=== PATIENT | female | born 1970 | race Caucasian/White ===

== ENCOUNTER 2018-03-16 17:06 | Emergency (ER) | payer BC ==
--- NOTE | 2018-03-16 17:31 | ERPHSYRPT ---
- History of Present Illness Patient Subjective Stated Complaint: Pt states "I have been fighting this for awhile now, my stomach will have periods of cramping and then it will ease up. I went to [facility] last week and they took an x ray and said they thought they saw something and I have an appointment with Dr. Grissom tomorrow so I thought I could make it. The cramping is just horrible. I usually have a bowel movement every time I go to the bathroom but I have not went in 24 hours. I took mirilax and it is still not helping." Triage Nursing Assessment: Pt alert and oriented X 3, skin pwd. Pt ambulates with an upright steady gait, able to speak in clear full sentences. Pt is obese with soft non tender abdomen, no apparent respiratory distress. Hx Tetanus, Diphtheria Vaccination/Date Given: Yes Hx Influenza Vaccination/Date Given: No Hx Pneumococcal Vaccination/Date Given: No Immunizations Up to Date: Yes <RILEY JEAN - Last Filed: 03/16/18 18:46> <TANESHA MEDELLIN - Last Filed: 03/16/18 20:21> - History of Present Illness Time Seen by Provider: 03/16/18 17:28 Physician History: mild to mod off and on diffuse abdominal cramps for one week, +feverish, +NV, no injury, no hx menstrual periods due to no ovaries (RILEY JEAN) Allergies/Adverse Reactions: No Known Drug Allergies Allergy (Unverified 03/16/18 17:22) - Review of Systems Constitutional: Fever Eyes: No Eye Redness Ears, Nose, & Throat: No Mouth Pain Respiratory: No Dyspnea Cardiac: No Chest Pain Abdominal/Gastrointestinal: Abdominal Pain, Nausea, Vomiting Genitourinary Symptoms: No Dysuria Musculoskeletal: No Back Pain Skin: No Rash Neurological: No Dizziness <RILEY JEAN - Last Filed: 03/16/18 18:46> - Past Medical History Pertinent Past Medical History: Yes Neurological History: No Pertinent History ENT History: No Pertinent History Cardiac History: No Pertinent History Respiratory History: No Pertinent History Endocrine Medical History: No Pertinent History Musculoskeletal History: No Pertinent History GI Medical History: No Pertinent History History: No Pertinent History Psycho-Social History: No Pertinent History Female Reproductive Disorders: Other Other Medical History: no ovaries - Past Surgical History Past Surgical History: Yes Other Surgical History: colton. left shoulder. left wrist - Social History Smoking Status: Never smoker Exposure to second hand smoke: No Drug Use: none Patient Lives Alone: Yes - Female History Hx Last Menstrual Period: no ovaries Hx Now: No <RILEY JEAN - Last Filed: 03/16/18 18:46> - Physical Exam General Appearance: no apparent distress Eye Exam: eyes nml inspection Ears, Nose, Throat Exam: moist mucous membranes Neck Exam: normal inspection Respiratory Exam: normal breath sounds Cardiovascular Exam: regular rate/rhythm Gastrointestinal/Abdomen Exam: tenderness, No rebound Extremity Exam: pelvis stable, No pedal edema Neurologic Exam: alert, oriented x 3, cooperative Skin Exam: warm, dry SpO2 Interpretation: normal SpO2: 97 Oxygen Delivery: Room Air <RILEY JEAN - Last Filed: 03/16/18 18:46> - Nursing Vital Signs Nursing Vital Signs: Initial Vital Signs Temperature 98.6 F 03/16/18 17:14 Pulse Rate 94 H 03/16/18 17:14 Respiratory Rate 16 03/16/18 17:14 Blood Pressure 137/78 03/16/18 17:14 O2 Sat by Pulse Oximetry 97 03/16/18 17:14 Pain Scale Pain Intensity 4 - Course Nursing assessment & vital signs reviewed: Yes <TANESHA MEDELLIN - Last Filed: 03/16/18 20:21> Ordered Tests: Active Orders 24 hr Category Date Time Status EKG-ER Only STAT Care 03/16/18 17:27 Active IV Insertion STAT Care 03/16/18 17:27 Active ABDOMEN AND PELVIS W/0 CONTRAS [CT] Stat Exams 03/16/18 18:43 Taken CBC W DIFF Stat Lab 03/16/18 Completed CMP Stat Lab 03/16/18 17:27 Completed LIPASE Stat Lab 03/16/18 17:27 Completed TROPONIN Q3H Lab 03/16/18 17:30 Completed TROPONIN Q3H Lab 03/16/18 20:30 Ordered TROPONIN Q3H Lab 03/16/18 23:30 Ordered TROPONIN Q3H Lab 03/17/18 02:30 Ordered TROPONIN Q3H Lab 03/17/18 05:30 Ordered UA W/RFX UR CULTURE Stat Lab 03/16/18 17:27 Uncollected Medication Summary Generic Name Dose Route Start Last Admin Trade Name Freq PRN Reason Stop Dose Admin Metronidazole 500 mg in 100 mls @ 200 mls/hr 03/16/18 20:13 Flagyl 500 Mg Ivpb IV 03/16/18 20:42 STAT STA Levofloxacin/Dextrose 500 mg in 100 mls @ 100 mls/hr 03/16/18 20:14 Levofloxacin 500mg/100ml D5w IV 03/16/18 21:13 STAT STA Discontinued Medications Generic Name Dose Route Start Last Admin Trade Name Freq PRN Reason Stop Dose Admin Ketorolac Tromethamine 30 mg 03/16/18 20:14 Toradol 30 Mg Injection IV 03/16/18 20:15 STAT ONE Lab/Rad Data: Laboratory Result Diagrams 03/16/18 Unknown 03/16/18 17:27 Laboratory Results 03/16/18 03/16/18 03/16/18 Range/Units Unknown 17:30 17:27 WBC 8.3 (4.0-10.5) K/mm3 RBC 5.09 (4.1-5.4) M/mm3 Hgb 15.0 (12.0-16.0) gm/dl Hct 44.9 (35-47) % MCV 88.2 (78-100) fl MCH 29.5 (26-32) pg MCHC 33.4 (32-36) g/dl RDW 13.6 (11.5-14.0) % Plt Count 214 (150-450) K/mm3 MPV 10.7 H (6-9.5) fl Gran % 75.3 H (36.0-66.0) % Eos # (Auto) 0.01 (0-0.5) Absolute Lymphs (auto) 1.24 (1.0-4.6) Absolute Monos (auto) 0.79 (0.0-1.3) Lymphocytes % 14.9 L (24.0-44.0) % Monocytes % 9.5 (0.0-12.0) % Eosinophils % 0.1 (0.00-5.0) % Basophils % 0.2 (0.0-0.4) % Absolute Granulocytes 6.25 (1.4-6.9) Basophils # 0.02 (0-0.4) Sodium 140 (137-145) mmol/L Potassium 3.8 (3.5-5.1) mmol/L Chloride 105 (98-107) mmol/L Carbon Dioxide 25 (22-30) mmol/L Anion Gap 13.8 (5-15) MEQ/L BUN 11 (7-17) mg/dL Creatinine 0.61 (0.52-1.04) mg/dL Estimated GFR > 60.0 ML/MIN Glucose 108 H (74-106) mg/dL Calcium 9.1 (8.4-10.2) mg/dL Total Bilirubin 1.10 (0.2-1.3) mg/dL AST 36 (14-36) U/L ALT 61 H (0-35) U/L Alkaline Phosphatase 201 H (38-126) U/L Troponin I < 0.012 (0.000-0.034) ng/mL Serum Total Protein 7.2 (6.3-8.2) g/dL Albumin 4.2 (3.5-5.0) g/dL Lipase < 10 L (23-300) U/L <RILEY JEAN - Last Filed: 03/16/18 18:46> <TANESHA MEDELLIN - Last Filed: 03/16/18 20:21> - Progress Progress Note: 03/16/18 18:[address] Medellin at 19:00 (RILEY JEAN) 03/16/18 20:[address] scan abd/pelvis shows a mild diverticulitis and the patient will be started on flagyl and levaquin. Pt will also be given a dose of toradol. Pt has no fever, no white count, is in no distress with no vomiting or diarrhea. Pt will F/U with Dr Grissom in the morning. (TANESHA MEDELLIN) <RILEY JEAN - Last Filed: 03/16/18 18:46> - Departure Time of Disposition: 20:19 Departure Disposition: Home Critical Care Time: No <TANESHA MEDELLIN - Last Filed: 03/16/18 20:21> - Departure Clinical Impression: Diverticulitis Condition: Stable Referrals: EDUARDO GRISSOM [Primary Care Provider] - Instructions: Diverticulitis (DC) Additional Instructions: Follow up with Dr Grissom in the morning for any additional recommendations. Return to the ER if you should have worsening abdominal pain, nausea, vomiting, diarrhea, bloody stools, fever or chills. Prescriptions: Ciprofloxacin HCl [Cipro] 500 mg PO BID #20 tablet Ketorolac Tromethamine [Toradol] 10 mg PO QID PRN #20 tablet PRN Reason: Pain Metronidazole [Flagyl] 500 mg PO BID #20 tablet
[2018-03-16 17:59] LABS: BASOPHIL % 0.2 % (0.0-0.4); Basophil (Absolute #) 0.02 (0-0.4); Eosinophil % 0.1 % (0.00-5.0); Eosinophil (Absolute #) 0.01 (0-0.5); Granulocyte Absolute (ANC) 6.25 (1.4-6.9); Granulocytes % 75.3 % (36.0-66.0); Hematocrit 44.9 % (35-47); Lymphocyte (Absolute #) 1.24 (1.0-4.6); Lymphocytes % 14.9 % (24.0-44.0); Mean Cell Volume 88.2 fl (78-100); Mean Corpuscular Hemoglobin 29.5 pg (26-32); Mean Corpuscular Hgb Concent. 33.4 g/dl (32-36); Mean Platelet Volume 10.7 fl (6-9.5); Monocyte (Absolute #) 0.79 (0.0-1.3); Monocytes % 9.5 % (0.0-12.0); Platelet Count 214 K/mm3 (150-450); Red Blood Count 5.09 M/mm3 (4.1-5.4); Red Cell Distribution Width 13.6 % (11.5-14.0); White Blood Count 8.3 K/mm3 (4.0-10.5)
[2018-03-16 18:21] LABS: ALBUMIN 4.2 g/dL (3.5-5.0); ALKALINE PHOSPHATASE 201 U/L (38-126); ANION GAP 13.8 MEQ/L (5-15); BLOOD UREA NITROGEN 11 mg/dL (7-17); CHLORIDE 105 mmol/L (98-107); Calcium 9.1 mg/dL (8.4-10.2); Carbon Dioxide 25 mmol/L (22-30); Creatinine 1 0.61 mg/dL (0.52-1.04); Glucose 108 mg/dL (74-106); Potassium 3.8 mmol/L (3.5-5.1); SGOT/AST 36 U/L (14-36); SGPT/ALT 61 U/L (0-35); SODIUM 140 mmol/L (137-145); Total Protein 7.2 g/dL (6.3-8.2)
[2018-03-16 18:34] VITALS: BP 105/55; PULSE 85
[2018-03-16 18:37] LABS: LIPASE < 10 U/L (23-300)
[2018-03-16 18:47] VITALS: O2SAT 97
[2018-03-16] MEDS ORDERED: FLAGYL 500 MG IVPB 500 MG/100 ML BAG IV STA (20:13)
[2018-03-16] MEDS ORDERED: Levofloxacin 500MG/100ML D5W 500 MG/100 ML BAG IV STA (20:14)
[2018-03-16] MEDS ORDERED: TORAdol 30 mg Injection IV ONE (20:14)
[2018-03-16] MEDS ORDERED: FLAGYL 500 MG IVPB 500 MG/100 ML BAG IV ONE (20:18)
[2018-03-16] MEDS ORDERED: TORAdol 30 mg Injection ONE (20:18)
[2018-03-16] MEDS ORDERED: Levofloxacin 500MG/100ML D5W 500 MG/100 ML BAG IV ONE (20:18)
[2018-03-16 21:02] LABS: Appearance CLEAR (CLEAR); Bilirubin NEGATIVE (NEGATIVE); Blood NEGATIVE Ery/ul (0-5); Glucose NEGATIVE (NEGATIVE); Ketones LARGE (NEGATIVE); Leukocyte Esterase TRACE (NEGATIVE); Nitrite NEGATIVE (NEGATIVE); Protein,Urine Dip NEGATIVE (Negative); Urobilinogen NORMAL mg/dL (0-1)
[2018-03-16 21:03] LABS: Bacteria FEW /HPF (NEGATIVE); Epithelial Cells FEW /HPF (FEW); Mucus SLIGHT /HPF (NEGATIVE); RBC 0-2 /HPF (0-2)
--- NOTE | 2018-03-17 14:51 | XRAY ---
Exam: CT of the abdomen and pelvis without IV contrast from 03/16/2018. CTDI: 35.17 Comparison: Supine film the abdomen from 03/06/2018. Indication: 47-year-old female with abdominal cramping, bloating, constipation 4 days, prior cholecystectomy. Technique: Non-IV contrast axial images were obtained through the abdomen and pelvis. Reconstructed coronal and sagittal images were created and reviewed. Findings: The lung bases reveal a calcified granuloma at the posterior lateral margin of the right lung base. There is minimal curvilinear scarring or subsegmental atelectasis at both posterior lung bases. Evaluation of the solid organs is limited without the use of IV contrast. The liver appears of unremarkable size and reveals no definite abnormality. No intrahepatic biliary duct distention is seen. Surgical clips consistent with prior cholecystectomy are seen within the subhepatic space. The spleen reveals numerous small calcified granulomas within it. The spleen is of normal size without mass. The pancreas and adrenal glands appear unremarkable. The kidneys appear of unremarkable size and shape. No renal calculi or hydronephrosis is seen. The abdominal aorta reveals no evidence of abdominal aortic aneurysm. Some mild atherosclerotic vascular calcification is seen within the distal abdominal aorta and branches of the iliac arteries. The patient is noted to be obese. A small fat-containing supraumbilical hernia is seen measuring about 3.8 cm in AP dimension and 3.0 cm in craniocaudal dimension. No bowel containing ventral hernia is seen. No inflammatory changes are seen within the right lower quadrant to suggest appendicitis. However, within the distal descending colon there is a suggestion of some concentric colon wall thickening on axial images #48 through #59. I also see asymmetric pericolonic fat stranding and edema about this segment of colon. Minimal thickening of Gerota's fascia is seen. Numerous diverticula are also seen within the proximal sigmoid colon. I see no bowel obstruction. The uterus is anteflexed and tilted slightly to the right of midline. The deep pelvic solid cordova appear unremarkable. No enlarged pelvic lymph nodes are seen. The inguinal regions appear normal. No free fluid is seen within the lower pelvis. There is a slight rotary convexity of the mid lumbar spine toward the left. I believe there is subtle bilateral spondylolysis of L5. No significant spondylolisthesis is seen. There is mild degenerative disc disease with vacuum disc phenomena at L5-S1. Minimal vertebral endplate lipping is seen within the lower thoracic spine and the lower lumbar spine. I see no acute fracture or aggressive bone lesion. Impression: 1. There appears to be some concentric bowel wall thickening within the distal descending colon. This colon segment is surrounded by abnormal pericolonic fat stranding and hazy edema. I also note multiple diverticula just distal to this. These findings are most suggestive of acute diverticulitis, although focal colitis would need to be considered as well. I do not see evidence of bowel perforation or walled off abscess. 2. Small fat-containing ventral hernia seen just superior to the umbilicus. No bowel containing ventral hernia is seen. 3. Status post cholecystectomy. 4. No other acute process is seen within the abdomen or pelvis. 5. I believe there is subtle bilateral spondylolysis of L5 without evidence of significant AP subluxation at L5-S1. I do note mild degenerative disc disease at L5-S1.
== END 2018-03-16 21:32 | disposition home or self-care (01) ==
LOC: ED 17:06
DX: K57.92 Diverticulitis of intestine, part unspecified, without perforation or abscess without bleeding (principal)
CPT/HCPCS: 36000; 36415; 74176; 80053; 81000; 83690; 84484; 85025; 93005; 96365; 96368; 96374; 96375; 99284; J1885; J1956

== ENCOUNTER 2018-04-07 05:37 | Day surgery (SDC) | payer BC ==
[2018-04-07] MEDS ORDERED: Lactated Ringers 1,000 ML IV SCH (06:00)
[2018-04-07 09:01] VITALS: O2SAT 93
[2018-04-07 09:30] VITALS: BP 138/93; PULSE 88
--- NOTE | 2018-04-07 11:07 | OP ---
SURGERY DATE/TIME: 04/07/2018 0758 PREOPERATIVE DIAGNOSIS: Left lower quadrant abdominal pain, diverticulosis. POSTOPERATIVE DIAGNOSIS: Focal area of colitis in the descending colon and sigmoid diverticulosis. PROCEDURE: Colonoscopy with biopsy. SURGEON: Dr. Toro. ANESTHESIA: MAC. Medications given by anesthesia department. HISTORY: The patient is a 47 year-old white female presenting now for endoscopic evaluation as she apparently had been admitted to [facility] and diagnosed with diverticulitis and treated with IV antibiotics. The patient had improved but felt to need to have endoscopic evaluation. The patient was appraised of the risks of the procedure including the risk of perforation, phlebitis, untoward reaction to medication, bleeding and missed lesions. The patient verbalized her understanding and desired to have the procedure performed. DESCRIPTION OF PROCEDURE: The patient was given the medications by the anesthesia department. She had continuous pulse oximetry, ECG monitoring, intermittent blood pressure monitoring and tidal CO2 monitoring during the examination. She was placed in the left lateral decubitus position. A digital rectal examination was performed and revealed normal anal sphincter tone and no masses. External hemorrhoids were present. The flexible Olympus pediatric colonoscope was used to intubate the rectum. A view of the colon was developed sequentially to the cecum. Upon insertion and withdrawal was noted mild to moderate sigmoid diverticula. There was also noted a focal area of what appeared to be some spasm in the distal descending colon. Biopsies were obtained in these areas to rule out the suspicion of underlying colitis. The scope was removed from the patient who tolerated the procedure well and was sent back to OP recovery in good condition. The prep was noted to be fair to good.
== END 2018-04-07 09:30 | disposition home or self-care (01) ==
LOC: SDC 05:37
PROVIDERS: ATTEND Family Medicine
DX: K52.89 Other specified noninfective gastroenteritis and colitis (principal); K57.30 Diverticulosis of large intestine without perforation or abscess without bleeding
CPT/HCPCS: 94250